=== PATIENT | male | born 1985 | race Caucasian/White ===

== ENCOUNTER 2017-05-17 13:39 | Emergency (ER) | payer SELFPAY ==
[2017-05-17] MEDS ORDERED: ONDANSETRON 4 MG/2 ML VIAL ONE (13:51)
[2017-05-17] MEDS ORDERED: ONDANSETRON 4 MG/2 ML VIAL IVP ONE (13:55)
[2017-05-17] MEDS ORDERED: NS 1,000 ML IV ONE ×2 (14:01→15:45)
[2017-05-17] MEDS ORDERED: fentaNYL 100 MCG/2 ML INJ IVP ONE (14:01)
--- NOTE | 2017-05-17 14:01 | EDPHY ---
HPI/HX/ROS/PE/MDM Narrative: CHIEF COMPLAINT: Vomiting, abdominal pain. HISTORY OF PRESENT ILLNESS: This patient is a 31 year old male arriving with his aunt complaining of abdominal pain, nausea, and vomiting worsening since yesterday evening. 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 He states he began to feel nauseous yesterday, and began to vomit this morning. He endorses left flank pain and left-sided abdominal pain, as well as some shortness of breath. He denies recent illness, other surgeries, or history of liver problems or pancreatitis. He denies blood in his stool or urine. No fever, chills, chest pain, palpitations, diarrhea, urinary complaints, headache , lightheadedness. REVIEW OF SYSTEMS: Aside from elements discussed in the HPI, a comprehensive 10-point review of systems was reviewed and is negative. PAST MEDICAL HISTORY: Surgical correction for obstructed bowel 12/2016 SOCIAL HISTORY: Aunt at bedside. Denies smoking, alcohol use, marijuana use. VITAL SIGNS: Reviewed by me GENERAL: Pale, ill-appearing, no respiratory distress. Actively retching. HEENT: Diaphoretic. Atraumatic. Eyes: No icterus, no injection. Mouth: Poor dentition. Moist mucous membranes. No erythema or lesions. Neck: supple with no adenopathy. LUNGS: Clear to auscultation bilaterally, no wheezes, rhonchi or rales. CARDIAC: Regular rate and rhythm, no rubs, murmurs or gallops. ABDOMEN: Fullness in the left inguinal area. Left lower quadrant tenderness. No guarding or rebound. Soft, nondistended, high pitched "tinkling" bowel sounds. BACK: Left flank fullness, pain. No CVA tenderness. EXTREMITIES: No trauma. No edema. Range of motion is normal throughout. NEURO: Alert and oriented, grossly nonfocal. SKIN: Warm and dry, no rash. PSYCHIATRIC: Normal mentation, no agitation. Portions of this note were transcribed by a biomedical photographer. I personally performed a history, physical exam, medical decision making, and confirmed accuracy of information the transcribed note. ED Course: This patient is a 31 year old male presenting with nausea, vomiting, and left sided abdominal pain worsening since last night. X-ray shows dilated bowel loops, no air fluid level. Administered 10mg IV Reglan, 2.5mg IV Haldol, 25mg IV Benadryl, 1mg IV Dilaudid , 4mg IV Zofran, 75mcg IV Fentanyl, and 1L IV NS for symptom relief. 15:[address] Montnaez, radiologist. CT shows dilated loops of small bowel , but no obstruction. Bilateral kidney stones present in the renal pelvises but no obstructing ureteral stone. Multiple reexaminations. Patient was gradually improved after fluids, pain meds, antiemetics. He was able to tolerate p.o. fluids without further vomiting. CT scan indicates no clear obstruction, and I do not believe the patient needs further inpatient therapy. He was comfortable being discharged home with symptomatic care. Patient will be discharged home in good condition with instructions to follow up with a primary care provider this week. Instructions for bland diet and prescriptions for Zofran and Phenergan given. Return precautions discussed. The patient is comfortable with this plan. MDM: Differential diagnosis of the patient's nausea and vomiting was considered including but not limited to gastroenteritis, gastritis, alcohol intoxication, withdrawal symptoms, intraabdominal processes including appendicitis, pancreatitis, bowel obstruction and medication side effect. - Data Points Imaging Results: Imaging Impressions Abdomen CT 05/17/17 14:03 Impression: 1. Dysmotile small bowel pattern suggestive of gastroenteritis. Doubtful for small bowel obstruction. 2. Trace free fluid. No abscess or pneumoperitoneum. 3. Normal appendix. 4. Nephrolithiasis. No hydronephrosis or ureteral calculi. Findings discussed with emergency department physician, Brianna Gonzalez MD on May 17, 2017 at 3:06 p.m. Abdomen X-Ray 05/17/17 14:03 Impression: 1. Bilateral nephrolithiasis. 2. No discernible ureteral calculi. 3. Gaseous bowel pattern. Doubtful for small bowel obstruction. Imaging: Discussed imaging studies w/ door builder Radiologist, I viewed and interpreted images myself Laboratory Results: Laboratory Results 05/17/17 14:00 05/17/17 14:00 05/17/17 05/17/17 05/17/17 15:10 14:00 14:00 WBC 18.70 10^3/uL H 10^3/uL (3.80-9.50) RBC 5.09 10^6/uL 10^6/uL (4.40-6.38) Hgb 15.6 g/dL g/dL (13.7-17.5) Hct 44.7 % % (40.0-51.0) MCV 87.8 fL fL (81.5-99.8) MCH 30.6 pg pg (27.9-34.1) MCHC 34.9 g/dL g/dL (32.4-36.7) RDW 11.8 % % (11.5-15.2) Plt Count 308 10^3/uL 10^3/uL (150-400) MPV 10.8 fL fL (8.7-11.7) Neut % (Auto) 87.9 % H % (39.3-74.2) Lymph % (Auto) 8.0 % L % (15.0-45.0) [place] % (Auto) 3.3 % L % (4.5-13.0) Eos % (Auto) 0.1 % L % (0.6-7.6) Baso % (Auto) 0.3 % % (0.3-1.7) Nucleat RBC Rel Count 0.0 % % (0.0-0.2) Absolute Neuts (auto) 16.45 10^3/uL H 10^3/uL (1.70-6.50) Absolute Lymphs (auto) 1.50 10^3/uL 10^3/uL (1.00-3.00) Absolute Monos (auto) 0.61 10^3/uL 10^3/uL (0.30-0.80) Absolute Eos (auto) 0.01 10^3/uL L 10^3/uL (0.03-0.40) Absolute Basos (auto) 0.06 10^3/uL 10^3/uL (0.02-0.10) Absolute Nucleated RBC 0.00 10^3/uL 10^3/uL (0-0.01) Immature Gran % 0.4 % % (0.0-1.1) Immature Gran # 0.07 10^3/uL 10^3/uL (0.00-0.10) Sodium 143 mEq/L mEq/L (134-144) Potassium 4.3 mEq/L mEq/L (3.5-5.2) Chloride 107 mEq/L mEq/L (97-110) Carbon Dioxide 20 mEq/l L mEq/l (22-31) Anion Gap 16 mEq/L mEq/L (8-16) BUN 17 mg/dL mg/dL (7-23) Creatinine 1.2 mg/dL mg/dL (0.7-1.3) Estimated GFR > 60 Glucose 138 mg/dL H mg/dL (70-100) Calcium 11.1 mg/dL H mg/dL (8.5-10.4) Phosphorus 2.7 mg/dL mg/dL (2.5-4.5) Total Bilirubin 1.0 mg/dL mg/dL (0.1-1.4) Conjugated Bilirubin 0.5 mg/dL mg/dL (0.0-0.5) Unconjugated Bilirubin 0.5 mg/dL mg/dL (0.0-1.1) AST 22 IU/L IU/L (17-59) ALT 24 IU/L IU/L (21-72) Alkaline Phosphatase 83 IU/L IU/L (38-126) Total Protein 8.9 g/dL H g/dL (6.3-8.2) Albumin 5.4 g/dL H g/dL (3.5-5.0) Lipase 38.0 IU/L IU/L (23-300) Urine Color YELLOW Urine Appearance CLEAR Urine pH 5.0 (5.0-7.5) Ur Specific [place] > 1.035 H (1.002-1.030) Urine Protein NEGATIVE (NEGATIVE) Urine Ketones 1+ H (NEGATIVE) Urine Blood 1+ H (NEGATIVE) Urine Nitrate NEGATIVE (NEGATIVE) Urine Bilirubin NEGATIVE (NEGATIVE) Urine Urobilinogen NEGATIVE EU EU (0.2-1.0) Ur Leukocyte Esterase NEGATIVE (NEGATIVE) Urine RBC 1-3 /hpf /hpf (0-3) Urine WBC 1-3 /hpf /hpf (0-3) Ur Epithelial Cells NONE SEEN /lpf /lpf (NONE-1+) Urine Mucus TRACE /lpf /lpf (NONE-1+) Urine Glucose NEGATIVE (NEGATIVE) Medications Given: Discontinued Medications Diphenhydramine HCl (Benadryl Injection) 25 mg IVP EDNOW ONE Stop: 05/17/17 15:08 Last Admin: 05/17/17 15:24 Dose: 25 mg Fentanyl (Sublimaze) 75 mcg IVP EDNOW ONE Stop: 05/17/17 14:02 Last Admin: 05/17/17 14:08 Dose: 75 mcg Haloperidol Lactate (Haldol Injection) 2.5 mg IVP EDNOW ONE Stop: 05/17/17 15:08 Last Admin: 05/17/17 15:24 Dose: 2.5 mg Hydromorphone HCl (Dilaudid) 1 mg IVP EDNOW ONE Stop: 05/17/17 15:01 Last Admin: 05/17/17 15:12 Dose: 1 mg Sodium Chloride (Ns) 1,000 mls @ 0 mls/hr IV ONCE ONE; Wide Open PRN Reason: Protocol Stop: 05/17/17 14:02 Last Admin: 05/17/17 14:08 Dose: 1,000 mls Sodium Chloride (Ns) 1,000 mls @ 0 mls/hr IV ONCE ONE; Wide Open PRN Reason: Protocol Stop: 05/17/17 15:46 Last Admin: 05/17/17 16:23 Dose: 1,000 mls Metoclopramide HCl (Reglan Injection) 10 mg IVP EDNOW ONE Stop: 05/17/17 15:08 Last Admin: 05/17/17 15:24 Dose: 10 mg Ondansetron HCl (Zofran) 4 mg IVP EDNOW ONE Stop: 05/17/17 13:56 Last Admin: 05/17/17 13:57 Dose: 4 mg General Time Seen by Provider: 05/17/17 13:49 Initial Vital Signs: Initial Vital Signs Heart Rate 50 L 05/17/17 13:39 Respiratory Rate 18 05/17/17 13:39 Blood Pressure 149/78 H 05/17/17 13:39 O2 Sat (%) 100 05/17/17 13:39 O2 Delivery Mode Room Air Allergies/Adverse Reactions: No Known Allergies Allergy (Unverified 05/17/17 13:45) Home Medications: Medication Instructions Recorded Ondansetron Odt [Zofran Odt 4 mg 4 mg PO Q6 PRN #8 tab 05/17/17 (RX)] Promethazine HCl [Phenergan 12.5mg 12.5 mg PO Q8 PRN #10 tablet 05/17/17 tab] Departure - Departure Disposition: Home, Routine, Self-Care Clinical Impression: Abdominal pain Qualifiers: Abdominal location: left lower quadrant Qualified Code(s): R10.32 - Left lower quadrant pain Vomiting Qualifiers: Vomiting type: unspecified Vomiting Intractability: non-intractable Nausea presence: with nausea Qualified Code(s): R11.2 - Nausea with vomiting, unspecified Condition: Good Instructions: Acute Nausea and Vomiting (ED), Abdominal Pain (ED) Additional Instructions: For your abdominal pain, nausea, vomiting, I suggested you start with a bland diet and advance as tolerated. This means start with clear liquids such as water, Gatorade, juice, flat non- caffeinated soda. If you tolerate clear liquids, then you may add bland foods such as bananas, rice, or toast. If you do not have any worsening of your symptoms, you may begin to resume a regular diet. You may use Zofran or Phenergan as needed for nausea and vomiting. Please follow up with the primary care physician as directed above for further evaluation. Return to the emergency department or seek care urgently if you have recurrent nausea vomiting not controlled with the above medications, if you develop a fever, worsening abdominal pain, or other concerns. Referrals: NONE *PRIMARY CARE P,. [Primary Care Provider] - As per Instructions Galina Godfrey MD [Medical Doctor] - As per Instructions Prescriptions: Ondansetron Odt [Zofran Odt 4 mg (RX)] 4 mg PO Q6 PRN #8 tab PRN Reason: Nausea Promethazine HCl [Phenergan 12.5mg tab] 12.5 mg PO Q8 PRN #10 tablet PRN Reason: nausea Report Scribed for: Brianna Gonzalez Report Scribed by: Deepa Guardado Date of Report: 05/17/17 Time of Report: 14:03
[2017-05-17 14:08] LABS: % IMMATURE GRANULYOCYTES 0.4 % (0.0-1.1); ABSOLUTE IMMATURE GRANULOCYTES 0.07 10^3/uL (0.00-0.10); ADD DIFF? NO; ADD MORPH? NO; ADD SCAN? NO; ATYPICAL LYMPHOCYTE FLAG 0 (0-99); FRAGMENT RBC FLAG 0 (0-99); HEMATOCRIT 44.7 % (40.0-51.0); HEMOGLOBIN 15.6 g/dL (13.7-17.5); LEFT SHIFT FLG 0 (0-99); LIPEMIA HEMOLYSIS FLAG 90 (0-99); MEAN CELL HEMOGLOBIN 30.6 pg (27.9-34.1); MEAN CELL HEMOGLOBIN CONCENTR. 34.9 g/dL (32.4-36.7); MEAN CELL VOLUME 87.8 fL (81.5-99.8); MEAN PLATELET VOLUME 10.8 fL (8.7-11.7); PLATELET CLUMPS FLAG 0 (0-99); PLATELET COUNT 308 10^3/uL (150-400); RED BLOOD CELL COUNT 5.09 10^6/uL (4.40-6.38); RED CELL DISTRIBUTION WIDTH 11.8 % (11.5-15.2)
[2017-05-17 14:22] LABS: ALANINE AMINOTRANSFERASE 24 IU/L (21-72); ALBUMIN 5.4 g/dL (3.5-5.0); ALKALINE PHOSPHATASE 83 IU/L (38-126); ANION GAP 16 mEq/L (8-16); ASPARTATE AMINOTRANSFERASE 22 IU/L (17-59); BILIRUBIN-CONJUGATED 0.5 mg/dL (0.0-0.5); BILIRUBIN-UNCONJUGATED 0.5 mg/dL (0.0-1.1); CALCIUM 11.1 mg/dL (8.5-10.4); CARBON DIOXIDE 20 mEq/l (22-31); CHLORIDE 107 mEq/L (97-110); CREATININE 1.2 mg/dL (0.7-1.3); GLOMERULAR FILTRATION RATE > 60; GLUCOSE 138 mg/dL (70-100); POTASSIUM 4.3 mEq/L (3.5-5.2); SODIUM 143 mEq/L (134-144); TOTAL PROTEIN 8.9 g/dL (6.3-8.2)
[2017-05-17] MEDS ORDERED: IOPAMIDOL (ISOVUE-300) 100 ML BTL ONE (14:29)
[2017-05-17] MEDS ORDERED: HYDROmorphONE/DILAUDID 1 MG/ML SYR IVP ONE (15:00)
[2017-05-17] MEDS ORDERED: METOCLOPRAMIDE 10 MG/2 ML VIAL IVP ONE (15:07)
[2017-05-17] MEDS ORDERED: HALOPERIDOL LACT 5 MG/ML INJ IVP ONE (15:07)
[2017-05-17 15:19] LABS: COLOR YELLOW; LEUKOCYTE ESTERASE,URINE NEGATIVE (NEGATIVE); NITRITE,URINE NEGATIVE (NEGATIVE)
[2017-05-17 15:20] LABS: MUCUS TRACE /lpf (NONE-1+)
[2017-05-17 17:48] VITALS: BP 124/66; PULSE 50; RESP 14; TEMP 97.7; O2SAT 98
== END 2017-05-17 17:47 | disposition home or self-care (01) ==
DX: R11.2 Nausea with vomiting, unspecified (principal); R10.32 Left lower quadrant pain; E86.9 Volume depletion, unspecified
CPT/HCPCS: 96374; J1170; J1200; J2405; J2765; J3010; Q9967